=== PATIENT | female | born 1950 | race African-American/Black ===

== ENCOUNTER → 2018-04-04 | Day surgery (SDC) | payer OTHER ==
[~2018-04-04] MED LIST: AMLO10TA2 PO; ASPI325T8 PO; ATROPINE 0.5 MG/5 ML DISP.SYRIN. IV PRN; HYDR25TA9 PO; IV RINGERS SOLUTION,LACTATED 1,000 ML IV SCH; LIDOCAINE 2% PF Vial for OR 5 ML VIAL. ONE; METF500T5 PO; NALOXONE 0.4 MG/ML VIAL. IV PRN; ONDANSETRON PF 4 MG/2 ML VIAL. IV PRN; PIOG30TA41 PO; PROPOFOL 40 ML IV ONE; SIMV80TA3 PO; SITA50TA PO; diphenhydrAMINE 50 MG/ML VIAL IV PRN
[2018-04-04 12:53] VITALS: BP 154/85
== END ==
LOC: SURG 10:27
PROVIDERS: ATTEND Internal Medicine Gastroenterology
DX: Z12.11 Encounter for screening for malignant neoplasm of colon (principal); K63.89 Other specified diseases of intestine; E11.9 Type 2 diabetes mellitus without complications; I10 Essential (primary) hypertension; Z98.890 Other specified postprocedural states; Z72.89 Other problems related to lifestyle
CPT/HCPCS: 45378; 82947; J2704; J7120; J2001